=== PATIENT | female | born 1965 | race Caucasian/White ===

== ENCOUNTER 2018-04-27 08:10 | Day surgery (SDC) | payer OTHER ==
[2018-04-27] MEDS ORDERED: Ringers Lactate 1,000 ML IV ONE ×2 (09:34→12:25)
[2018-04-27] MEDS ORDERED: NA CHLORIDE 0.9% 1,000 ML ONE (12:27)
[2018-04-27] MEDS ORDERED: FENTANYL CITR 100 MCG/2 ML ONE ×2 (12:31→12:48)
[2018-04-27] MEDS ORDERED: PROPOFOL 200 MG/20 ML VIAL IV ONE ×2 (12:32→12:45)
[2018-04-27] MEDS ORDERED: MIDAZOLAM HCL 2 MG/2 ML INJ ONE (12:33)
[2018-04-27] MEDS ORDERED: LIDOCAINE 1% MPF 2 ML AMPULE ONE (12:33)
[2018-04-27] MEDS: LIDOCAINE 1% W/EPI 1:100,000 MDV 50 ML VIAL ONE ×2 (12:42→12:50)
[2018-04-27] MEDS ORDERED: KETOROLAC 30 MG/ML INJ ONE (13:03)
== END 2018-04-27 13:50 | disposition home or self-care (01) ==
LOC: OR 08:10
PROVIDERS: ATTEND Obstetrics & Gynecology
PROC: 0UJD8ZZ Inspection of Uterus and Cervix, Via Natural or Artificial Opening Endoscopic (ICD-10-PCS; principal; 2018-04-27 09:45)
DX: R10.2 Pelvic and perineal pain (principal); N95.1 Menopausal and female climacteric states; I10 Essential (primary) hypertension
CPT/HCPCS: 81025; 88305; J2001; J2250; J2704; J3010; J7030

== ENCOUNTER 2023-02-22 10:22 | Day surgery (SDC) | payer OTHER ==
--- NOTE | 2023-02-21 08:51 | RAD REPORT ---
EXAM DESCRIPTION: RAD - Chest Pa And Lat (2 Views) - 02/21/2023 8:44 am CLINICAL HISTORY: Pre op pending rotator cuff repair, hypertension COMPARISON: No comparisons FINDINGS: Lines: None. Lungs: No evidence of edema or pneumonia. Pleural: No significant pleural effusions or pneumothorax. Cardiac: The heart size is within normal limits. Mediastinum: Within normal limits. Bones: No acute fractures. Other: None IMPRESSION: No acute cardiopulmonary disease.
[2023-02-21 09:21] LABS: Absolute Lymphocytes (CBC) 1.8 K/uL (0.7-4.9); Hematocrit 36.8 % (36.0-45.0); Lymphocytes % 34.1 % (15.3-44.8); MCV 88.9 fL (80-100); MPV 7.4 fL (7.6-11.3); Platelets 355 thou/uL (152-406); RBC Red Blood Cell Count 4.14 M/uL (3.86-4.86)
[2023-02-21 09:27] LABS: Protime INR 0.94
[2023-02-21 09:35] LABS: Potassium 3.5 mEq/L (3.5-5.1)
[2023-02-22] MEDS ORDERED: CEFAZOLIN SODIUM 1 GM/VIAL ONE (10:52)
[2023-02-22] MEDS ORDERED: Ringers Lactate 1,000 ML IV ONE ×2 (10:52→13:43)
[2023-02-22] MEDS ORDERED: EPINEPHRINE/PF 1 MG/ML AMP ONE ×2 (11:23→11:27)
[2023-02-22] MEDS ORDERED: FENTANYL CITR 100 MCG/2 ML ONE (11:27)
[2023-02-22] MEDS ORDERED: MIDAZOLAM HCL 2 MG/2 ML INJ ONE (11:27)
[2023-02-22] MEDS ORDERED: dexAMETHasone 4 MG/ML VIAL ONE (11:27)
[2023-02-22] MEDS ORDERED: LIDOCAINE 2% MPF 5 ML VIAL ONE ×2 (11:27→11:59)
[2023-02-22] MEDS ORDERED: KETOROLAC 30 MG/ML INJ ONE (11:59)
[2023-02-22] MEDS ORDERED: ROCURONIUM 50 MG/5 ML VIAL IV ONE (11:59)
[2023-02-22] MEDS ORDERED: propofoL 200 MG/20 ML VIAL IV ONE (11:59)
[2023-02-22] MEDS ORDERED: ONDANSETRON 4 MG/2 ML VIAL ONE (12:02)
[2023-02-22] MEDS ORDERED: EPHEDRINE SULF 50 MG/ML VIAL ONE (13:13)
--- NOTE | 2023-02-22 13:54 | P.BOP ---
Preoperative diagnosis: right shoulder calcific rotator cuff tendinitis, impingement syndrome Postoperative diagnosis: same, right shoulder SLAP tear Primary procedure: right shoulder arthroscopic rotator cuff debridement with repair Secondary procedure: right shoulder arthroscopic SLAP debridement Other procedure(s): right shoulder arthroscopic subacromial decompression Shop Service Technician: NONE,NONE Estimated blood loss: 5 cc Specimen: none Findings: see dictation Anesthesia: General Complications: None Implants: Arthrex 4.75 mm swivelock Fluids & blood products: per anesthesia record Transferred to: Recovery Room Condition: Good
[2023-02-22 14:36] VITALS: TEMP 97
[2023-02-22 15:03] VITALS: BP 127/68; O2SAT 97
[2023-02-22] MEDS ORDERED: HYDROCODONE/APAP 7.5/325 MG TAB ONE (15:18)
--- NOTE | 2023-02-22 18:05 | RAD REPORT ---
EXAM DESCRIPTION: Shoulder 1 View - 02/22/2023 2:39 pm CLINICAL HISTORY: s/p R RCR COMPARISON: Chest Pa And Lat (2 Views) dated 02/21/2023; Shoulder Rt Wo Cont dated 09/06/2022 TECHNIQUE: Single view of the right shoulder obtained. FINDINGS: Postsurgical changes in the overlying soft tissues. There is no fracture or dislocation. A C joint is normal in appearance. Lobulated radiodensity projecting over the proximal humeral metaphys is, probably relates to postsurgical residua of calcified material. IMPRESSION: Postsurgical changes as above.
--- NOTE | 2023-02-22 22:10 | OP ---
Date of Procedure: 02/22/2023 Surgeon: Derick Fine MD Preoperative Diagnoses: 1.Right shoulder calcific tendinitis of the rotator cuff. 2.Right shoulder impingement. Postoperative Diagnoses: 1.Right shoulder calcific tendinitis of the rotator cuff. 2.Right shoulder impingement. 3.Right shoulder superior labrum anterior and posterior tear. Procedures Performed: 1.Right shoulder arthroscopic rotator cuff debridement with repair. 2.Right shoulder arthroscopic superior labrum anterior and posterior tear debridement. 3.Right shoulder arthroscopic subacromial decompression. Anesthesia: General endotracheal. Fluids: Per Anesthesia record. Estimated Blood Loss: 5 cc. Complications: None. Implants: A 4.75 mm Arthrex SwiveLock. Indication For Procedure: Ms. Bella Diaz is a 57-year-old female who presented to my clinic with signs and symptoms and x-ray findings consistent with calcific tendinitis of the rotator cuff. Cira ent failed conservative treatment, measures including multiple corticosteroid injections. MRI was pe rformed and there was no significant tear; however, the patient had significant calcific tendinitis. I discussed with patient at length risks and benefits associated with operative treatment. She expr essed understanding and elected to proceed with operative treatment. Description Of Procedure: After informed consent was obtained, the patient was identified in the pre operative holding area. The right upper extremity was marked. Patient was then brought back to the PACU where she underwent an interscalene block of her right upper extremity performed by Anesthesia. She was then brought back to the operating room, transferred to the operative table in supine fashio n, placed under general endotracheal anesthesia. Right upper extremity was then prepped and draped i n usual sterile fashion. A time-out was initiated. Correct patient and procedure were confirmed and identified. Patient did receive preoperative prophylactic antibiotics. A spinal needle was introdu macario into the glenohumeral joint via the posterior portal position and the shoulder was injected with 30 cc of normal saline to distend the capsule. A posterior portal was created and arthroscope was br ought in via the posterior portal position under direct visualization. Anterior portal cannula were placed. Diagnostic arthroscopy was performed. Patient was noted to have some fraying of the superio r labrum and superior labral debridement was performed using the arthroscopic shaver. The biceps ten don anchor was found to be healthy and intact. There was no significant tenosynovitis of the biceps tendon noted. The patient had an intact subscapularis as well as intact undersurface of supraspinatu s and infraspinatus. There were no loose bodies in the axillary pouch. The arthroscope was then bro ught to the subacromial space and a subacromial bursectomy was performed. A lateral portal and cannu la were placed. There was significant hyperemia of the rotator cuff tendon at area of insertion and spinal needle was then used to debride the area of inflammation. There was significant amount of ashley cification and white substance that was expressed in the rotator cuff tendon near its insertion with debridement using a spinal needle. All healthy tissue was then debrided using the arthroscopic shave r. Rotator cuff debridement was performed. There was a small defect noted in the anterior edge of t he supraspinatus and the rotator cuff repair was placed by first placing a FiberTape suture in invert ed mattress fashion and then secured to the greater tuberosity using a 4.75 mm SwiveLock. There was good overall reduction of the rotator cuff back onto the greater tuberosity after the debridement was completed. There was some spurring of the undersurface of the acromion as well as the fraying of th e coracoacromial ligament. A subacromial decompression was performed using arthroscopic bur with an acromioplasty being performed. Arthroscopic instruments were then removed without complication. Wou nds were then irrigated thoroughly with normal saline. Subcutaneous tissue was approximated using a 2-0 Vicryl and portals were approximated using a 4-0 Monocryl. Sterile dressings were applied. Cira ent was placed in a shoulder immobilizer, awakened, and transferred to the PACU in stable condition. Postoperative Plan: The patient will be nonweightbearing to remain in a shoulder immobilizer. She w ill follow up in 1 week for suture removal. Begin physical therapy for small rotator cuff repair pro tocol at 3 weeks postop. CV/MODL Voice ID: [id number] Report ID: [id number]
== END 2023-02-22 16:04 | disposition home or self-care (01) ==
LOC: OR 10:22
PROVIDERS: ATTEND Orthopaedic Surgery Sports Medicine
PROC: 0RNJ4ZZ Release Right Shoulder Joint, Percutaneous Endoscopic Approach (ICD-10-PCS; principal; 2023-02-22 12:30)
DX: M75.31 Calcific tendinitis of right shoulder (principal); M25.811 Other specified joint disorders, right shoulder; M75.21 Bicipital tendinitis, right shoulder; I10 Essential (primary) hypertension
CPT/HCPCS: 85025; 80048; 36415; 85610; 85730; 71046; 73020; 29827; 29826; 29822; J2704; J1100; J0171 ×2; J2001 ×2; J2250; J3010; J2405; J7120 ×2; J0690